=== PATIENT | female | born 1950 | race Caucasian/White ===

== ENCOUNTER 2021-06-08 14:50 | Inpatient (IN) | payer MEDICARE, OTHER ==
[~2021-06-08] VITALS: Ht 165.1 cm; Wt 54.5 kg
[2021-06-08 16:27] LABS: HCT 40.7 % (37.0-47.0); HGB 13.8 g/dl (12.5-16.0); MCH 32.9 pg (25.0-31.0); MCHC 33.9 g/dL (32.0-36.0); MCV 96.9 fL (78.0-100.0); RBC 4.2 M/uL (4.20-5.40); RDW 12.4 % (11.5-14.0); WBC 11.6 K/uL (4.0-10.5)
[2021-06-08 16:56] LABS: ALBUMIN 3.4 g/dL (3.4-5.0); BILIRUBIN - TOTAL 0.4 mg/dL (0.2-1.0); BUN/CREAT RATIO (CALC) 25.9 RATIO; CREATININE 0.85 mg/dL (0.51-0.95); TOTAL PROTEIN 6.4 g/dL (6.4-8.2)
[2021-06-08 18:25] LABS: BILIRUBIN NEGATIVE (NEGATIVE); BLOOD 3+ Ery/uL (NEGATIVE); CLARITY HAZY (CLEAR); COLOR YELLOW (YELLOW); GLUCOSE (U) NORMAL (NORMAL); LEUKOCYTES NEGATIVE Leu/uL (NEGATIVE); NITRITE POSITIVE (NEGATIVE); PROTEIN NEGATIVE (NEGATIVE); SPECIFIC GRAVITY >=1.030 (1.001-1.030); UROBILINOGEN 0.2 mg/dL (0.2-1.0)
[2021-06-08 18:30] LABS: BACTERIA 4+
[2021-06-08] MEDS ORDERED: LISINOPRIL20 MG PO (19:55)
[2021-06-08 20:32] LABS: INR 0.95 (0.9-1.2); PROTHROMBIN TIME 12.1 SECONDS (11.8-13.4)
[2021-06-09 05:42] LABS: BASOPHIL 0.3 % (0-2); EOSINOPHIL 0.6 % (0-7); HCT 37.8 % (37.0-47.0); LYMPHOCYTE 23.5 % (15-48); MCH 33.7 pg (25.0-31.0); MCHC 34.4 g/dL (32.0-36.0); MCV 97.9 fL (78.0-100.0); MONOCYTE 7.5 % (0-12); MPV 7.9 fL (6.0-9.5); NEUTROPHIL 67.8 % (41-80); NRBC 0; PLT 183 K/uL (150-400); RBC 3.86 M/uL (4.20-5.40); RDW 12.6 % (11.5-14.0); WBC 6.6 K/uL (4.0-10.5)
[2021-06-09 06:09] LABS: BUN/CREAT RATIO (CALC) 20.5 RATIO; CREATININE 0.73 mg/dL (0.51-0.95); MAGNESIUM 1.9 mg/dL (1.8-2.4)
[2021-06-10 06:11] LABS: BASOPHIL 0.2 % (0-2); EOSINOPHIL 0.1 % (0-7); HCT 39.5 % (37.0-47.0); HGB 13.4 g/dl (12.5-16.0); LYMPHOCYTE 13.9 % (15-48); MCH 33.1 pg (25.0-31.0); MCHC 33.9 g/dL (32.0-36.0); MCV 97.5 fL (78.0-100.0); MONOCYTE 7.6 % (0-12); MPV 8.4 fL (6.0-9.5); NRBC 0; PLT 211 K/uL (150-400); RBC 4.05 M/uL (4.20-5.40); RDW 12.4 % (11.5-14.0); WBC 8.3 K/uL (4.0-10.5)
[2021-06-10 06:32] LABS: ALBUMIN 3.1 g/dL (3.4-5.0); BILIRUBIN - TOTAL 0.8 mg/dL (0.2-1.0); BUN/CREAT RATIO (CALC) 19.7 RATIO; CREATININE 0.61 mg/dL (0.51-0.95); GLOBULIN (CALCULATION) 3.6 g/dL; POTASSIUM 4.1 mmol/L (3.5-5.1); TOTAL PROTEIN 6.7 g/dL (6.4-8.2)
--- NOTE | 2021-06-10 13:24 | NUR ---
MET WITH SON,FARZANA DUE TO PT GOING THROUGH DT'S AT THIS TIME AND IS NOT COHERENT. SON STATED THAT THE FAMILY WANTS THE PT TO GO TO A NURSING HOME FACILITY FOR PHYSCIAL THERAPY. ADVISED HIM OF THE DIFFERENT FACILITIES IN THIS AREA. HE IS GOING TO DISCUSS WITH THE OF THE CHOICES AND WILL CALL ME.
--- NOTE | 2021-06-10 14:42 | NUR ---
MET WITH SPOUSE. HE STATED THAT HE HAD NO IDEA THAT HIS WOULD GO THROUGH WITHDRAWALS. HE ADVISED THAT HE WOULD SPEAK WITH HIS CHILDREN REGARDING PLACEMENT CHOICES.
[2021-06-11 05:49] LABS: BASOPHIL 0.4 % (0-2); EOSINOPHIL 0.2 % (0-7); HCT 40.2 % (37.0-47.0); HGB 13.6 g/dl (12.5-16.0); LYMPHOCYTE 12.3 % (15-48); MCHC 33.8 g/dL (32.0-36.0); MCV 97.6 fL (78.0-100.0); MPV 8.1 fL (6.0-9.5); NEUTROPHIL 78.7 % (41-80); NRBC 0; PLT 192 K/uL (150-400); RBC 4.12 M/uL (4.20-5.40); WBC 8.2 K/uL (4.0-10.5)
[2021-06-11 06:23] LABS: BILIRUBIN - TOTAL 1.8 mg/dL (0.2-1.0); CREATININE 0.63 mg/dL (0.51-0.95); GLOBULIN (CALCULATION) 3.7 g/dL; POTASSIUM 4.1 mmol/L (3.5-5.1); TOTAL PROTEIN 6.7 g/dL (6.4-8.2)
--- NOTE | 2021-06-11 14:45 | NUR ---
MET WITH PT. SPOUSE HE IS REQUESTING THAT A REFERRAL BE SENT TO [facility] FOR SKILLED CARE WHEN PT IS MEDICALLY STABLE.
--- NOTE | 2021-06-11 19:24 | NUR ---
1200 PT REMOVED FERNANDES CATH, IV AND TELEMETRY NEW IV WAS PLACED TELEMETRY REPLACED CALLED MD VALDES AND ASKED ABOUT THE PLACEMENT OF A NEW FERNANDES. LUCIO STATED THAT HE DID NOT WANT TO A NEW FERNANDES PLACED AT THIS TIME CLARFIED ORDER FOR ATIVAN ON EMAR DUE TO FREQUENCY BEING UNCLEAR. LUCIO STATED THAT HE WANTED THE FREQUENCY TO BE Q8H
[2021-06-12 06:34] LABS: BASOPHIL 0.2 % (0-2); EOSINOPHIL 0.1 % (0-7); HCT 43.1 % (37.0-47.0); HGB 14.6 g/dl (12.5-16.0); LYMPHOCYTE 6.6 % (15-48); MCH 33.5 pg (25.0-31.0); MCHC 33.9 g/dL (32.0-36.0); MCV 98.9 fL (78.0-100.0); MPV 8.1 fL (6.0-9.5); NEUTROPHIL 84.5 % (41-80); NRBC 0; PLT 223 K/uL (150-400); RBC 4.36 M/uL (4.20-5.40); RDW 12.1 % (11.5-14.0); WBC 11.4 K/uL (4.0-10.5)
[2021-06-12 06:50] LABS: ALBUMIN 2.9 g/dL (3.4-5.0); BILIRUBIN - TOTAL 3.2 mg/dL (0.2-1.0); BUN/CREAT RATIO (CALC) 22.6 RATIO; CREATININE 0.62 mg/dL (0.51-0.95); GLOBULIN (CALCULATION) 4.3 g/dL; TOTAL PROTEIN 7.2 g/dL (6.4-8.2)
--- NOTE | 2021-06-12 13:30 | NUR ---
DANIELA WITH [facility] WITH OT. SHE ADVISED THAT THE PT REFUSED THERAPY THIS DATE.
[2021-06-13 04:18] LABS: HCT 39.4 % (37.0-47.0); HGB 13.3 g/dl (12.5-16.0); MCH 33.3 pg (25.0-31.0); MCHC 33.8 g/dL (32.0-36.0); MCV 98.7 fL (78.0-100.0); MPV 8.2 fL (6.0-9.5); RBC 3.99 M/uL (4.20-5.40); RDW 12.5 % (11.5-14.0)
[2021-06-13 04:37] LABS: ALBUMIN 2.4 g/dL (3.4-5.0); BILIRUBIN - TOTAL 2.3 mg/dL (0.2-1.0); BUN/CREAT RATIO (CALC) 27.6 RATIO; CREATININE 0.76 mg/dL (0.51-0.95); GLOBULIN (CALCULATION) 4.3 g/dL; POTASSIUM 3.8 mmol/L (3.5-5.1); TOTAL PROTEIN 6.7 g/dL (6.4-8.2)
[2021-06-14 04:04] LABS: BASOPHIL 0.5 % (0-2); HCT 42.2 % (37.0-47.0); HGB 13.7 g/dl (12.5-16.0); LYMPHOCYTE 14.3 % (15-48); MCH 32.5 pg (25.0-31.0); MCHC 32.5 g/dL (32.0-36.0); MCV 100.2 fL (78.0-100.0); MONOCYTE 10.7 % (0-12); MPV 8.5 fL (6.0-9.5); NEUTROPHIL 72.1 % (41-80); NRBC 0; PLT 256 K/uL (150-400); RBC 4.21 M/uL (4.20-5.40); RDW 13.1 % (11.5-14.0); WBC 10.2 K/uL (4.0-10.5)
[2021-06-14 04:39] LABS: ALBUMIN 2.4 g/dL (3.4-5.0); BILIRUBIN - TOTAL 2.2 mg/dL (0.2-1.0); BUN/CREAT RATIO (CALC) 32.5 RATIO; CREATININE 0.8 mg/dL (0.51-0.95); GLOBULIN (CALCULATION) 4.6 g/dL
[2021-06-15 06:33] LABS: BASOPHIL 0.4 % (0-2); HGB 13.1 g/dl (12.5-16.0); LYMPHOCYTE 11.9 % (15-48); MCH 32.4 pg (25.0-31.0); MCHC 32.8 g/dL (32.0-36.0); MONOCYTE 9.4 % (0-12); MPV 8.5 fL (6.0-9.5); NEUTROPHIL 75.8 % (41-80); NRBC 0; PLT 316 K/uL (150-400); RBC 4.04 M/uL (4.20-5.40); RDW 13.2 % (11.5-14.0); WBC 8.5 K/uL (4.0-10.5)
[2021-06-15 06:48] LABS: ALBUMIN 2.3 g/dL (3.4-5.0); BILIRUBIN - TOTAL 1.8 mg/dL (0.2-1.0); BUN/CREAT RATIO (CALC) 31.2 RATIO; CREATININE 1.12 mg/dL (0.51-0.95); GLOBULIN (CALCULATION) 4.6 g/dL; POTASSIUM 4.2 mmol/L (3.5-5.1); TOTAL PROTEIN 6.9 g/dL (6.4-8.2)
[2021-06-16 06:16] LABS: BASOPHIL 0.4 % (0-2); EOSINOPHIL 1.1 % (0-7); HCT 38.1 % (37.0-47.0); HGB 12.9 g/dl (12.5-16.0); LYMPHOCYTE 9.3 % (15-48); MCH 33.6 pg (25.0-31.0); MCHC 33.9 g/dL (32.0-36.0); MCV 99.2 fL (78.0-100.0); MONOCYTE 9.9 % (0-12); MPV 8.7 fL (6.0-9.5); NRBC 0; PLT 353 K/uL (150-400); RBC 3.84 M/uL (4.20-5.40); RDW 13.5 % (11.5-14.0); WBC 9.4 K/uL (4.0-10.5)
[2021-06-16 06:47] LABS: ALBUMIN 2.2 g/dL (3.4-5.0); BILIRUBIN - TOTAL 1.5 mg/dL (0.2-1.0); BUN/CREAT RATIO (CALC) 34.8 RATIO; CREATININE 0.92 mg/dL (0.51-0.95); GLOBULIN (CALCULATION) 4.7 g/dL; POTASSIUM 4.4 mmol/L (3.5-5.1); TOTAL PROTEIN 6.9 g/dL (6.4-8.2)
[2021-06-17 06:36] LABS: BASOPHIL 0.4 % (0-2); EOSINOPHIL 0.3 % (0-7); HCT 40.7 % (37.0-47.0); HGB 13.4 g/dl (12.5-16.0); LYMPHOCYTE 7.7 % (15-48); MCH 32.8 pg (25.0-31.0); MCHC 32.9 g/dL (32.0-36.0); MCV 99.8 fL (78.0-100.0); MONOCYTE 9.9 % (0-12); MPV 8.9 fL (6.0-9.5); NEUTROPHIL 80.9 % (41-80); NRBC 0; PLT 396 K/uL (150-400); RBC 4.08 M/uL (4.20-5.40); RDW 13.7 % (11.5-14.0); WBC 11.4 K/uL (4.0-10.5)
[2021-06-17 06:50] LABS: ALBUMIN 2.2 g/dL (3.4-5.0); BILIRUBIN - TOTAL 1.8 mg/dL (0.2-1.0); BUN/CREAT RATIO (CALC) 32.6 RATIO; CREATININE 0.95 mg/dL (0.51-0.95); GLOBULIN (CALCULATION) 4.8 g/dL; POTASSIUM 4.2 mmol/L (3.5-5.1)
[2021-06-18 06:53] LABS: BASOPHIL 0.3 % (0-2); EOSINOPHIL 0.5 % (0-7); HCT 36.9 % (37.0-47.0); HGB 12.3 g/dl (12.5-16.0); LYMPHOCYTE 9.3 % (15-48); MCH 33.2 pg (25.0-31.0); MCHC 33.3 g/dL (32.0-36.0); MCV 99.5 fL (78.0-100.0); MONOCYTE 9.4 % (0-12); MPV 8.9 fL (6.0-9.5); NEUTROPHIL 79.6 % (41-80); NRBC 0; PLT 395 K/uL (150-400); RBC 3.71 M/uL (4.20-5.40); RDW 13.7 % (11.5-14.0); WBC 11.6 K/uL (4.0-10.5)
[2021-06-18 07:17] LABS: ALBUMIN 2.2 g/dL (3.4-5.0); BILIRUBIN - TOTAL 1.6 mg/dL (0.2-1.0); BUN/CREAT RATIO (CALC) 36.4 RATIO; CREATININE 0.88 mg/dL (0.51-0.95); GLOBULIN (CALCULATION) 4.5 g/dL; POTASSIUM 3.6 mmol/L (3.5-5.1); TOTAL PROTEIN 6.7 g/dL (6.4-8.2)
[2021-06-18 15:57] LABS: BILIRUBIN NEGATIVE (NEGATIVE); BLOOD TRACE-INTACT Ery/uL (NEGATIVE); CLARITY CLEAR (CLEAR); COLOR YELLOW (YELLOW); GLUCOSE (U) NORMAL (NORMAL); LEUKOCYTES NEGATIVE Leu/uL (NEGATIVE); NITRITE NEGATIVE (NEGATIVE); PROTEIN NEGATIVE (NEGATIVE); UROBILINOGEN 0.2 mg/dL (0.2-1.0)
[2021-06-18 16:07] LABS: BACTERIA 1+
--- NOTE | 2021-06-18 18:12 | NUR ---
1200 SPOKE TO DAUGHTER JEF AND GAVE UPDATE OMN PT STATUS, JEF GAVE PHONE NUMBERS OF SIBILINGS FOLLOWS JEF ELINA: [phone] FRANCISCO BLINCOE :[phone] PRINCE BLINCOE [phone] SERVANDO BLINCOE [phone] 1700 PT APPERAS ALERT AND ORIENTED, ABLE TO ANSWER ALL QUESTIONS CORRECTLY AND ALL COMMENTS PERTAIN TO CONVERSATION ASKED FOR NE[facility] BROOKS TO CALL NEO BROOKS CALLED AND GAVE AN UPDATE ALSO TRANSFERRED CALL INTO ROOM AND PT SPOKE TO
--- NOTE | 2021-06-18 18:17 | NUR ---
1730 PT STRAIGHT CATH FOR URINE SPECIMAN 1400ML WAS REMOVED IN TOTAL
[2021-06-19 07:11] LABS: ALBUMIN 1.8 g/dL (3.4-5.0); CREATININE 0.58 mg/dL (0.51-0.95); MAGNESIUM 1.6 mg/dL (1.8-2.4); POTASSIUM 3.3 mmol/L (3.5-5.1); TOTAL PROTEIN 5.8 g/dL (6.4-8.2)
[2021-06-20 04:15] LABS: BASOPHIL 0.7 % (0-2); EOSINOPHIL 2.1 % (0-7); HCT 35.2 % (37.0-47.0); HGB 11.9 g/dl (12.5-16.0); LYMPHOCYTE 18.6 % (15-48); MCH 32.3 pg (25.0-31.0); MCHC 33.8 g/dL (32.0-36.0); MCV 95.7 fL (78.0-100.0); MONOCYTE 8.5 % (0-12); NEUTROPHIL 68.3 % (41-80); NRBC 0; PLT 375 K/uL (150-400); RBC 3.68 M/uL (4.20-5.40); RDW 12.7 % (11.5-14.0); WBC 7.7 K/uL (4.0-10.5)
[2021-06-20 04:40] LABS: ALBUMIN 1.9 g/dL (3.4-5.0); BILIRUBIN - TOTAL 0.8 mg/dL (0.2-1.0); BUN/CREAT RATIO (CALC) 21.2 RATIO; CREATININE 0.52 mg/dL (0.51-0.95); GLOBULIN (CALCULATION) 3.7 g/dL; MAGNESIUM 1.5 mg/dL (1.8-2.4); POTASSIUM 2.9 mmol/L (3.5-5.1); TOTAL PROTEIN 5.6 g/dL (6.4-8.2)
[2021-06-21 04:00] LABS: BASOPHIL 0.4 % (0-2); HCT 32.9 % (37.0-47.0); HGB 11.3 g/dl (12.5-16.0); LYMPHOCYTE 20.1 % (15-48); MCH 32.4 pg (25.0-31.0); MCHC 34.3 g/dL (32.0-36.0); MCV 94.3 fL (78.0-100.0); MONOCYTE 9.9 % (0-12); MPV 8.7 fL (6.0-9.5); NEUTROPHIL 66.1 % (41-80); NRBC 0; PLT 383 K/uL (150-400); RBC 3.49 M/uL (4.20-5.40); RDW 12.7 % (11.5-14.0); WBC 9.1 K/uL (4.0-10.5)
[2021-06-21 04:31] LABS: ALBUMIN 1.8 g/dL (3.4-5.0); BILIRUBIN - TOTAL 0.8 mg/dL (0.2-1.0); BUN/CREAT RATIO (CALC) 18.8 RATIO; CREATININE 0.48 mg/dL (0.51-0.95); GLOBULIN (CALCULATION) 3.6 g/dL; MAGNESIUM 1.8 mg/dL (1.8-2.4); POTASSIUM 4.3 mmol/L (3.5-5.1); TOTAL PROTEIN 5.4 g/dL (6.4-8.2)
[2021-06-22 05:55] LABS: BASOPHIL 0.5 % (0-2); EOSINOPHIL 1.4 % (0-7); HCT 32.8 % (37.0-47.0); HGB 11.3 g/dl (12.5-16.0); MCH 32.8 pg (25.0-31.0); MCHC 34.5 g/dL (32.0-36.0); MCV 95.3 fL (78.0-100.0); MONOCYTE 8.1 % (0-12); MPV 8.8 fL (6.0-9.5); NEUTROPHIL 71.4 % (41-80); NRBC 0; PLT 388 K/uL (150-400); RBC 3.44 M/uL (4.20-5.40); RDW 12.7 % (11.5-14.0); WBC 11.1 K/uL (4.0-10.5)
[2021-06-22 06:08] LABS: ALBUMIN 1.7 g/dL (3.4-5.0); BILIRUBIN - TOTAL 0.9 mg/dL (0.2-1.0); CREATININE 0.5 mg/dL (0.51-0.95); GLOBULIN (CALCULATION) 3.9 g/dL; MAGNESIUM 1.7 mg/dL (1.8-2.4); POTASSIUM 3.7 mmol/L (3.5-5.1); TOTAL PROTEIN 5.6 g/dL (6.4-8.2)
--- NOTE | 2021-06-22 15:49 | NUR ---
SIMIN WITH [facility] ADVISED THAT PT HAS BEEN ACCEPTED. TC TO MR. WONG AND ADVISED HIM THAT HE WILL NEED TO TRANSPORT PT TO [facility] TOMORROW. HE WAS IN AGREEMENT. ADVISED CECILIA TORRES OF THE PLAN FOR PT D/C TO [facility] TOMORROW. ALSO, ADVISED MANNY GARCIA OF THE PLAN. ALSO ADVISED MELISSA THAT PT WILL NEED A COVID TEST AND THAT DR. FOFANA WILL NEED TO SIGN THE H & P
[2021-06-23 04:32] LABS: BASOPHIL 0.4 % (0-2); EOSINOPHIL 1.5 % (0-7); HCT 32.1 % (37.0-47.0); HGB 10.9 g/dl (12.5-16.0); LYMPHOCYTE 16.8 % (15-48); MCH 32.5 pg (25.0-31.0); MCV 95.8 fL (78.0-100.0); MONOCYTE 8.5 % (0-12); MPV 8.7 fL (6.0-9.5); NEUTROPHIL 71.6 % (41-80); PLT 410 K/uL (150-400); RBC 3.35 M/uL (4.20-5.40)
[2021-06-23 04:53] LABS: ALBUMIN 1.8 g/dL (3.4-5.0); BILIRUBIN - TOTAL 0.8 mg/dL (0.2-1.0); BUN/CREAT RATIO (CALC) 19.2 RATIO; CREATININE 0.52 mg/dL (0.51-0.95); MAGNESIUM 1.7 mg/dL (1.8-2.4); POTASSIUM 3.7 mmol/L (3.5-5.1); TOTAL PROTEIN 5.8 g/dL (6.4-8.2)
[2021-06-23 05:00] LABS: EOSINOPHIL(M) 2 % (0-7); LYMPHOCYTE(M) 17 % (15-48); MONOCYTE(M) 7 % (0-12); NEUTROPHILS(M) 74 % (41-80); PLATELET ESTIMATE NORMAL; PLATELET MORPHOLOGY NORMAL; TOTAL CELL COUNT 100
[2021-06-23] MEDS ORDERED: MAG-OXIDE 400M400 MG PO (09:10)
[2021-06-23] MEDS ORDERED: NORVASC5 MG PO (09:10)
[2021-06-23] MEDS ORDERED: TOPROL XL 25MG25 MG PO (09:10)
[2021-06-23] MEDS ORDERED: FOLIC ACID1 MG PO (09:10)
[2021-06-23] MEDS ORDERED: B-1100 MG PO (09:10)
[2021-06-23] MEDS ORDERED: TAMSULOSIN HCL0.4 MG PO (09:10)
[2021-06-23] MEDS ORDERED: NORCO 5-325 TA1 EACH PO (09:12)
--- NOTE | 2021-06-23 10:34 | NUR ---
NUMBER FOR REPORT [phone] FAX FOR DC SUMMARY IS [phone].
== END 2021-06-23 13:08 | DRG 535 ==
LOC: FER 14:50 → FMS 17:01 → FTCU 17:01 → FMS 17:01 → FTCU 06-10 12:06
PROVIDERS: Emergency Medicine; Family Medicine; Hospitalist; Internal Medicine; Nurse Practitioner; ADMIT Internal Medicine
PROC: HZ2ZZZZ Detoxification Services for Substance Abuse Treatment (ICD-10-PCS; principal; 2021-06-09)
DX: S32.512A Fracture of superior rim of left pubis, initial encounter for closed fracture (principal); G92.8 Other toxic encephalopathy; N17.9 Acute kidney failure, unspecified; F10.131 Alcohol abuse with withdrawal delirium; N39.0 Urinary tract infection, site not specified; E87.0 Hyperosmolality and hypernatremia; Z20.822 Contact with and (suspected) exposure to COVID-19; S32.592A Other specified fracture of left pubis, initial encounter for closed fracture; D64.9 Anemia, unspecified; E87.6 Hypokalemia; E83.42 Hypomagnesemia; R33.8 Other retention of urine; K59.03 Drug induced constipation; T40.605A Adverse effect of unspecified narcotics, initial encounter; E86.0 Dehydration; I10 Essential (primary) hypertension; B96.20 Unspecified Escherichia coli [E. coli] as the cause of diseases classified elsewhere; W10.2XXA Fall (on)(from) incline, initial encounter; Y92.009 Unspecified place in unspecified non-institutional (private) residence as the place of occurrence of the external cause
CPT/HCPCS: 36415; 70450; 71045; 72192; 73502; 74018; 76705; 80048; 80053; 81001; 82140; 83605; 83735; 84100; 84132; 85025; 85610; 86803; 87076; 87088; 87186; 92523; 93005; 97162; 97166; 97530; 97530-GP; 97535; J0360; J0696; J1170; J1650; J2060; J2405; J3411; J3475; J7030; J7120; U0002